=== PATIENT | male | born 1990 | race Hispanic/Latino ===

== ENCOUNTER 2018-06-30 11:56 | Outpatient (CLI) | payer BC ==
--- NOTE | 2018-06-30 13:38 | RAD ---
CHEST 2 VIEWS: Date: 06/30/18 HISTORY: Psoriatic spondylitis. COMPARISON: None. FINDINGS: Heart size is within normal limits. The lungs are clear. No confluent pneumonia, overt edema, pleural effusion, or other acute process. IMPRESSION: No acute intrathoracic disease. POS: [facility]
== END 2018-06-30 11:57 | disposition home or self-care (01) ==
LOC: BICRAD 11:56
PROVIDERS: ATTEND Internal Medicine Rheumatology
DX: L40.53 Psoriatic spondylitis (principal)
CPT/HCPCS: 71046